=== PATIENT | female | born 1975 ===

== ENCOUNTER 2020-07-23 21:39 | Inpatient (IN) | payer OTHER ==
[~2020-07-23] VITALS: Ht 160 cm; Wt 90.7 kg
[2020-07-23] MEDS ORDERED: PRILOSEC OTC20 MG (22:35)
[2020-07-26] MEDS ORDERED: HEMATOGEN FA S1 EACH PO (14:00)
[2020-07-26] MEDS ORDERED: SPRINTEC 28 DA1 EACH PO (14:02)
== END 2020-07-26 16:30 | disposition home or self-care (01) | DRG 812 ==
LOC: ER 21:39 → OB/GYN 07-24 07:52
PROVIDERS: ADMIT Obstetrics & Gynecology; ATTEND Obstetrics & Gynecology
PROC: 30233N1 Transfusion of Nonautologous Red Blood Cells into Peripheral Vein, Percutaneous Approach (ICD-10-PCS; principal; 2020-07-24)
PROC: BU4CZZZ Ultrasonography of Uterus and Ovaries (ICD-10-PCS; 2020-07-24)
DX: D62 Acute posthemorrhagic anemia (principal); N93.8 Other specified abnormal uterine and vaginal bleeding

== ENCOUNTER 2020-08-28 08:17 | Outpatient (CLI) | payer OTHER ==
[~2020-08-28 08:17] MED LIST: HEMATOGEN FA S1 EACH PO; PRILOSEC OTC20 MG; SPRINTEC 28 DA1 EACH PO
== END 2020-08-28 08:28 | disposition home or self-care (01) ==
LOC: LAB 08:17
PROVIDERS: ATTEND Radiology Diagnostic Radiology
DX: N20.0 Calculus of kidney (principal)

== ENCOUNTER 2020-09-16 07:23 | Outpatient (CLI) | payer OTHER | END 2020-09-16 07:29 | disposition home or self-care (01) | LOC: TOM 07:23 | PROVIDERS: ATTEND Internal Medicine Hematology & Oncology | DX: N93.8 Other specified abnormal uterine and vaginal bleeding (principal); R10.11 Right upper quadrant pain; D50.8 Other iron deficiency anemias; D25.0 Submucous leiomyoma of uterus ==

== ENCOUNTER 2020-11-28 22:40 | Emergency (ER) | payer OTHER ==
[~2020-11-28] VITALS: Ht 160 cm; Wt 90.7 kg
[2020-11-28] MEDS ORDERED: ACIDO FOLICO (23:02)
== END 2020-11-29 08:41 | disposition home or self-care (01) ==
LOC: ER 22:40
DX: N93.8 Other specified abnormal uterine and vaginal bleeding (principal); D64.9 Anemia, unspecified

== ENCOUNTER 2020-11-30 11:47 | Inpatient (IN) | payer OTHER ==
[~2020-11-30] VITALS: Ht 160 cm; Wt 90.7 kg
[~2020-11-30 11:47] MED LIST changes: +ACIDO FOLICO
[2020-12-01] MEDS ORDERED: MEGESTROL ACETA40 MG (08:13)
[2020-12-01] MEDS ORDERED: LUPRON DEPOT3.75 M1 (08:13)
[2020-12-01] MEDS ORDERED: FOLIC ACID1 MG (08:14)
[2020-12-06] MEDS ORDERED: Tylenol #3 PO (08:12)
[2020-12-06] MEDS ORDERED: MACROBID 100 M100 MG PO (08:12)
[2020-12-06] MEDS ORDERED: NAPR500T14 PO (08:12)
== END 2020-12-06 10:55 | disposition home or self-care (01) | DRG 742 ==
LOC: OB/GYN 11:47
PROVIDERS: Surgery; ADMIT Obstetrics & Gynecology; ATTEND Obstetrics & Gynecology
PROC: 30233N1 Transfusion of Nonautologous Red Blood Cells into Peripheral Vein, Percutaneous Approach (ICD-10-PCS; 2020-11-30)
PROC: 0UB70ZZ Excision of Bilateral Fallopian Tubes, Open Approach (ICD-10-PCS; 2020-12-03)
PROC: 0DNU0ZZ Release Omentum, Open Approach (ICD-10-PCS; 2020-12-03)
PROC: 0UT90ZZ Resection of Uterus, Open Approach (ICD-10-PCS; principal; 2020-12-03 13:15)
PROC: 0TQB0ZZ Repair Bladder, Open Approach (ICD-10-PCS; 2020-12-03 13:15)
DX: N80.0 Endometriosis of uterus (principal); N99.71 Accidental puncture and laceration of a genitourinary system organ or structure during a genitourinary system procedure; D50.0 Iron deficiency anemia secondary to blood loss (chronic); N72 Inflammatory disease of cervix uteri; N83.8 Other noninflammatory disorders of ovary, fallopian tube and broad ligament; D50.8 Other iron deficiency anemias; N92.1 Excessive and frequent menstruation with irregular cycle; R10.2 Pelvic and perineal pain; Z20.822 Contact with and (suspected) exposure to COVID-19

== ENCOUNTER 2020-12-16 09:22 | Outpatient (CLI) | payer OTHER ==
[~2020-12-16 09:22] MED LIST changes: +FOLIC ACID1 MG; +LUPRON DEPOT3.75 M1; +MACROBID 100 M100 MG PO; +MEGESTROL ACETA40 MG; +NAPR500T14 PO; +Tylenol #3 PO
== END 2020-12-16 15:00 | disposition home or self-care (01) ==
LOC: LAB 09:22
PROVIDERS: ATTEND Surgery
DX: N39.0 Urinary tract infection, site not specified (principal)

== ENCOUNTER → 2020-12-16 10:47 | Outpatient (CLI) | payer OTHER | END | disposition home or self-care (01) | LOC: RAD 10:47 | PROVIDERS: ATTEND Surgery | DX: S37.23XD Laceration of bladder, subsequent encounter (principal) ==